=== PATIENT | male | born 1935 ===

== ENCOUNTER 2018-01-01 11:13 | Day surgery (SDC) | payer MEDICARE ==
[~2018-01-01 11:13] MED LIST: Acetaminophen TAB* 325 MG PO PRN; Buffered Lidocaine 0.9% SYRIN* 5 ML/SYR SYRINGE INTRADERM ONE
[2018-01-01] MEDS ORDERED: Midazolam* 1 MG/ML 2 ML VIAL (2 MG) ONE (12:25)
[2018-01-01 13:39] VITALS: BP 113/66
[2018-01-01] MEDS ORDERED: Povidone Iodine 5% OPTH* 30 ML BTL ONE (16:30)
[2018-01-01] MEDS ORDERED: Ketorolac 0.5% OPHTH (NF) 0.5 % 5 ML BTL ONE (16:30)
[2018-01-01] MEDS ORDERED: Lidocaine 1% MPF* 2 ML VIAL ONE (16:30)
[2018-01-01] MEDS ORDERED: Neomycin/Polymy/Dex OPHTH.OIN* 3.5 GM ONE (16:30)
[2018-01-01] MEDS ORDERED: Tetracaine 0.5% OPTH.SOL 4 ML* 1 DROP BTL ONE (16:30)
[2018-01-01] MEDS ORDERED: Phenylephrine 2.5% OPTH.SOL* 2 ML BTL ONE (16:30)
[2018-01-01] MEDS ORDERED: Tropicamide 1% OPTH.SOL* BTL ONE (16:30)
[2018-01-01] MEDS ORDERED: Cyclopentolate 1% OPTH.SOL* 2 ML BTL ONE (16:30)
--- NOTE | 2018-01-01 22:10 | OP ---
OPERATIVE REPORT: DATE OF OPERATION: 01/01/18 - [facility] DATE OF : 33 SURGEON: Chino Anderson MD ANESTHESIOLOGIST: Jen Couch MD ANESTHESIA: Monitored anesthesia care. PRE-OP DIAGNOSIS: Cataract, right eye with pseudoexfoliation. POST-OP DIAGNOSIS: Cataract, right eye with pseudoexfoliation. OPERATIVE PROCEDURE: Extracapsular cataract extraction of the right eye with intraocular lens implant and capsular tension ring implant. IMPLANTS: SN60WF 18.0 diopter lens to the right eye, also a capsular tension ring size 11 to the right eye. COMPLICATIONS: None. DESCRIPTION OF PROCEDURE: The patient was given phenylephrine 2.5% and cyclopentolate 1% eye drops to the operative eye in the preoperative area. The patient was brought to the operating room where a time-out was taken to identify the correct patient, site, and side of surgery. The patient's right eye was prepped and draped in the usual sterile fashion with 5% Betadine. A second time- out was taken to verify the correct patient, site, and side of surgery and correct lens selection. A lid speculum was placed to the right eye. A 1-mm paracentesis blade was used to make a clear corneal incision in the superotemporal position. Preservative-free 1% lidocaine was injected into the anterior chamber. DisCoVisc was then injected into the anterior chamber. A 2.75-mm keratome blade was used to make a triplanar incision at the inferotemporal position. A cystotome initiated a capsulorrhexis, which was completed with Utrata forceps in a continuous and curvilinear manner. Hydrodissection of the lens was performed with BSS on a cannula. The lens could be spun in the capsular bag. The phacoemulsification handpiece was used with a [id number]-hto-ihyrotv technique to remove the nucleus in its entirety with 35.64 CDE. The I/A handpiece then removed the residual cortical lens material. DisCoVisc was injected to inflate the capsular bag. The capsular tension ring was then inserted. The planned SN60WF 18.0 diopter lens was injected in the capsular bag. The residual DisCoVisc was removed from the eye with the I/A handpiece. The corneal incisions were hydrated and no leaks occurred at physiologic pressure around 20 mmHg per palpation. The lid speculum was removed and drapes removed. Maxitrol ointment was placed to the surface of the operative eye. An adhesive patch and shield were then placed on the operative eye. The patient was taken to the postoperative area in stable condition. [id number]/[facility] #: [id number] MTDShane
== END 2018-01-01 13:49 | disposition home or self-care (01) ==
LOC: OREAST 11:13
PROVIDERS: ATTEND Student in an Organized Health Care Education/Training Program
DX: H25.11 Age-related nuclear cataract, right eye (principal); H40.1434 Capsular glaucoma with pseudoexfoliation of lens, bilateral, indeterminate stage; K51.90 Ulcerative colitis, unspecified, without complications; N32.81 Overactive bladder
CPT/HCPCS: A9270-GY; J2250; V2632

== ENCOUNTER 2018-01-08 10:35 | Day surgery (SDC) | payer MEDICARE ==
[~2018-01-08 10:35] MED LIST changes: +Cyclopentolate 1% OPTH.SOL* 2 ML BTL ONE; +Ketorolac 0.5% OPHTH (NF) 0.5 % 5 ML BTL ONE; +Lidocaine 1% MPF* 2 ML VIAL ONE; +Neomycin/Polymy/Dex OPHTH.OIN* 3.5 GM ONE; +Phenylephrine 2.5% OPTH.SOL* 2 ML BTL ONE; +Povidone Iodine 5% OPTH* 30 ML BTL ONE; +Tetracaine 0.5% OPTH.SOL 4 ML* 1 DROP BTL ONE; +Tropicamide 1% OPTH.SOL* BTL ONE; +acetaZOLAMIDE TAB* 250 MG ONE
[2018-01-08] MEDS ORDERED: fentaNYL* 50 MCG/ML 2 ML VIAL (100 MCG VIAL) ONE (11:32)
[2018-01-08] MEDS ORDERED: Midazolam* 1 MG/ML 2 ML VIAL (2 MG) ONE (11:32)
[2018-01-08 12:55] VITALS: BP 117/76
--- NOTE | 2018-01-08 16:00 | OP ---
DATE OF OPERATION: 01/08/18 - [facility] DATE OF : 33 SURGEON: Chino Anderson MD ANESTHESIA: Monitored anesthesia care. PRE-OP DIAGNOSIS: Cataract, left eye with pseudoexfoliation syndrome. POST-OP DIAGNOSIS: Cataract, left eye with pseudoexfoliation syndrome. OPERATIVE PROCEDURE: Extracapsular cataract extraction of the left eye with intraocular lens implant and capsular tension ring implant. IMPLANTS: SN60WF 18.0 diopter lens to the left eye and capsular tension ring size 11, left eye. COMPLICATIONS: None. DESCRIPTION OF PROCEDURE: The patient was given phenylephrine 2.5% and cyclopentolate 1% eye drops to the operative eye in the preoperative area. The patient was brought to the operating room where a time-out was taken to identify the correct patient, site, and side of surgery. The patient's left eye was prepped and draped in the usual sterile fashion with 5% Betadine. A second time-out was taken to verify the correct patient, site, and side of surgery and correct lens selection. A lid speculum was placed into the left eye. A 1-mm paracentesis blade was used to make a clear corneal incision in the inferotemporal position. Preservative free 1% lidocaine was injected into the anterior chamber. DisCoVisc was then injected into the anterior chamber. A 2.75-mm keratome blade was used to make a triplanar incision at the superotemporal position. A cystotome initiated a capsulorrhexis, which was completed with Utrata forceps in a continuous and curvilinear manner. Hydrodissection of the lens was performed with BSS on a cannula. The lens could be spun in the capsular bag. The phacoemulsification handpiece was used with a xapolm-[id number]-mwkqxhm technique to remove the nucleus in its entirety with 47.56 CDE. The I/A handpiece then removed the residual cortical lens material. DisCoVisc was injected to inflate the capsular bag. A size 11 capsular tension ring was then inserted due to the patient's pseudo-exfoliation syndrome. The planned SN60WF 18.0 diopter lens was injected in the capsular bag. The residual DisCoVisc was removed from the eye with the I/A handpiece. The corneal incisions were hydrated and no leaks occurred at physiologic pressure around 20 mmHg per palpation. The lid speculum was removed and drapes removed. Maxitrol ointment was placed on the surface of the operative eye. An adhesive patch and shield were then placed on the operative eye. The patient was taken to the postoperative area in stable condition. [id number]/[facility] #: [id number] MTDD
== END 2018-01-08 12:52 | disposition home or self-care (01) ==
LOC: OREAST 10:35
PROVIDERS: ATTEND Student in an Organized Health Care Education/Training Program
DX: H25.12 Age-related nuclear cataract, left eye (principal); H40.1434 Capsular glaucoma with pseudoexfoliation of lens, bilateral, indeterminate stage; H43.812 Vitreous degeneration, left eye; K51.90 Ulcerative colitis, unspecified, without complications; N32.81 Overactive bladder
CPT/HCPCS: A9270-GY; J2250; J3010; V2632